=== PATIENT | female | born 1975 | race Caucasian/White ===

== ENCOUNTER → 2016-11-13 | Outpatient (CLI) | payer OTHER | LOC: RAD 08:33 | DX: M79.671 Pain in right foot (principal) ==

== ENCOUNTER → 2018-03-21 | Outpatient (CLI) | payer OTHER ==
[2018-03-21 12:50] LABS: EOS # 0.1 (0.04-0.40); EOS % 2.1 % (1.0-5.0); HEMATOCRIT 42.1 % (37.0-47.0); HEMOGLOBIN 13.9 g/dL (12.5-16.0); LYMPH# 2.4 (1.50-4.00); MEAN CELL VOLUME 87 fl (78-100); MEAN CORPUSCULAR HEMOGLOBIN 29 pg (27-31); MEAN CORPUSCULAR HGB CONC 33 g/dL (33-37); MEAN PLATELET VOLUME 11.5 fl (7.4-10.4); MONO # 0.7 (0.20-0.80); NEU # 3.3 (1.40-6.50); PLATELET COUNT 276 K/mm3 (130-400); RED BLOOD COUNT 4.84 M/mm3 (4.10-5.30); RED CELL DISTRIBUTION WIDTH 12.9 % (11.5-14.5); WHITE BLOOD COUNT 6.6 K/mm3 (4.8-10.8)
[2018-03-21 12:54] LABS: ALBUMIN 4.2 g/dL (3.5-5.0); BUN/CREATININE RATIO 15.5 (6.0-26.0); CALCIUM 8.8 mg/dL (8.4-10.2); POTASSIUM 4.3 mmol/L (3.6-5.0); TOTAL BILIRUBIN 0.5 mg/dL (0.2-1.3); TOTAL PROTEIN 8.1 g/dL (6.3-8.2)
[2018-03-21 13:58] LABS: ERYTHROCYTE SEDIMENTATION RATE 28 mm/hr (0-20)
== END ==
LOC: LAB 12:24
PROVIDERS: Internal Medicine
DX: Z00.00 Encounter for general adult medical examination without abnormal findings (principal)

== ENCOUNTER → 2018-07-29 | Outpatient (CLI) | payer BC | LOC: MAMMO 13:23 | DX: Z12.31 Encounter for screening mammogram for malignant neoplasm of breast (principal) ==

== ENCOUNTER 2018-08-27 16:00 | Outpatient (RCR) | payer BC | END 2018-10-28 | disposition home or self-care (01) | LOC: PT | DX: S29.012D Strain of muscle and tendon of back wall of thorax, subsequent encounter (principal); G43.909 Migraine, unspecified, not intractable, without status migrainosus ==

== ENCOUNTER → 2018-09-13 | Outpatient (CLI) | payer BC ==
[2018-09-13 08:42] LABS: EOS # 0.2 (0.04-0.40); EOS % 3.1 % (1.0-5.0); HEMATOCRIT 42.7 % (37.0-47.0); HEMOGLOBIN 14.4 g/dL (12.5-16.0); MEAN CELL VOLUME 87 fl (78-100); MEAN CORPUSCULAR HEMOGLOBIN 29 pg (27-31); MEAN CORPUSCULAR HGB CONC 34 g/dL (33-37); MEAN PLATELET VOLUME 11.1 fl (7.4-10.4); MONO # 0.6 (0.20-0.80); PLATELET COUNT 303 K/mm3 (130-400); RED BLOOD COUNT 4.89 M/mm3 (4.10-5.30); RED CELL DISTRIBUTION WIDTH 12.5 % (11.5-14.5); WHITE BLOOD COUNT 5.8 K/mm3 (4.8-10.8)
[2018-09-13 08:48] LABS: ALBUMIN 4.4 g/dL (3.5-5.0); CALCIUM 9.2 mg/dL (8.4-10.2); POTASSIUM 4.3 mmol/L (3.6-5.0); TOTAL BILIRUBIN 0.5 mg/dL (0.2-1.3); TOTAL PROTEIN 7.7 g/dL (6.3-8.2)
[2018-09-13 10:00] LABS: ERYTHROCYTE SEDIMENTATION RATE 18 mm/hr (0-20)
== END ==
LOC: LAB 08:05
PROVIDERS: Internal Medicine
DX: Z00.00 Encounter for general adult medical examination without abnormal findings (principal)

== ENCOUNTER → 2018-10-24 | Outpatient (CLI) | payer BC ==
[2018-10-24 08:29] LABS: ALBUMIN 4.2 g/dL (3.5-5.0); DIRECT BILIRUBIN 0.4 mg/dL (0.0-0.4); TOTAL BILIRUBIN 0.5 mg/dL (0.2-1.3); TOTAL PROTEIN 7.3 g/dL (6.3-8.2)
== END ==
LOC: LAB 08:01
PROVIDERS: Internal Medicine
DX: R94.5 Abnormal results of liver function studies (principal)

== ENCOUNTER → 2018-10-28 | Outpatient (CLI) | payer BC | LOC: RAD 07:05 | DX: R94.5 Abnormal results of liver function studies (principal) ==

== ENCOUNTER 2018-12-14 13:13 | Emergency (ER) | payer OTHER ==
[~2018-12-14] VITALS: Ht 157.5 cm; Wt 90.5 kg
[2018-12-14] MEDS ORDERED: ESTRACE1 M1 PO (14:11)
[2018-12-14] MEDS ORDERED: CALAN120 MG PO (14:12)
[2018-12-14] MEDS ORDERED: CYCLOBENZAPRINE10 M1 PO (16:31)
[2018-12-14] MEDS ORDERED: KETOROLAC10 MG PO (16:31)
[2018-12-14 16:45] VITALS: BP 140/96
== END 2018-12-14 16:45 | disposition home or self-care (01) ==
LOC: ED 13:13
DX: M62.838 Other muscle spasm (principal); R74.0 Nonspecific elevation of levels of transaminase and lactic acid dehydrogenase [LDH]; G43.909 Migraine, unspecified, not intractable, without status migrainosus; F17.210 Nicotine dependence, cigarettes, uncomplicated; Z88.1 Allergy status to other antibiotic agents; Z88.8 Allergy status to other drugs, medicaments and biological substances
CPT/HCPCS: J1885

== ENCOUNTER → 2020-04-20 | Outpatient (CLI) | payer BC ==
[~2020-04-20] MED LIST: CALAN120 MG PO; CYCLOBENZAPRINE10 M1 PO; ESTRACE1 M1 PO; KETOROLAC10 MG PO
== END ==
LOC: MAMMO 09:45
DX: Z12.31 Encounter for screening mammogram for malignant neoplasm of breast (principal); N63.10 Unspecified lump in the right breast, unspecified quadrant

== ENCOUNTER → 2020-04-26 | Outpatient (CLI) | payer BC | LOC: RAD 07:29 | DX: N63.11 Unspecified lump in the right breast, upper outer quadrant (principal) ==

== ENCOUNTER → 2020-04-29 | Outpatient (CLI) | payer BC ==
[2020-04-29 11:26] LABS: EOS # 0.3 (0.04-0.40); EOS % 3.7 % (1.0-5.0); HEMATOCRIT 42.9 % (37.0-47.0); HEMOGLOBIN 14.2 g/dL (12.5-16.0); LYMPH# 2.1 (1.50-4.00); MEAN CELL VOLUME 89 fl (78-100); MEAN CORPUSCULAR HEMOGLOBIN 29 pg (27-31); MEAN CORPUSCULAR HGB CONC 33 g/dL (33-37); MEAN PLATELET VOLUME 10.9 fl (7.4-10.4); MONO # 0.8 (0.20-0.80); NEU # 3.7 (1.40-6.50); PLATELET COUNT 304 K/mm3 (130-400); RED BLOOD COUNT 4.85 M/mm3 (4.10-5.30); RED CELL DISTRIBUTION WIDTH 12.4 % (11.5-14.5); WHITE BLOOD COUNT 6.8 K/mm3 (4.8-10.8)
[2020-04-29 11:29] LABS: POTASSIUM 4.3 mmol/L (3.5-5.1)
[2020-04-29 11:30] LABS: ALBUMIN 4.2 g/dL (3.5-5.0)
[2020-04-29 11:31] LABS: CALCIUM 9.7 mg/dL (8.3-10.5)
[2020-04-29 11:32] LABS: TOTAL PROTEIN 7.7 g/dL (6.4-8.3)
[2020-04-29 11:34] LABS: TOTAL BILIRUBIN 0.3 mg/dL (0.2-1.2)
[2020-04-29 12:39] LABS: ERYTHROCYTE SEDIMENTATION RATE 13 mm/hr (0-20)
== END ==
LOC: RAD 11:02
PROVIDERS: Internal Medicine
DX: N64.89 Other specified disorders of breast (principal); N63.10 Unspecified lump in the right breast, unspecified quadrant; Z98.82 Breast implant status
CPT/HCPCS: 15989; 15990; A4648

== ENCOUNTER 2020-05-14 12:56 | Emergency (ER) | payer BC ==
[~2020-05-14] VITALS: Ht 160 cm; Wt 100.9 kg
[2020-05-14 13:53] LABS: URINE WBC 0 /hpf (0-3)
[2020-05-14 13:58] LABS: EOS # 0.3 (0.04-0.40); EOS % 3.5 % (1.0-5.0); HEMATOCRIT 40.1 % (37.0-47.0); HEMOGLOBIN 13.2 g/dL (12.5-16.0); LYMPH# 2.2 (1.50-4.00); MEAN CELL VOLUME 89 fl (78-100); MEAN CORPUSCULAR HEMOGLOBIN 29 pg (27-31); MEAN CORPUSCULAR HGB CONC 33 g/dL (33-37); MEAN PLATELET VOLUME 10.9 fl (7.4-10.4); MONO # 0.7 (0.20-0.80); NEU # 4.3 (1.40-6.50); PLATELET COUNT 280 K/mm3 (130-400); RED BLOOD COUNT 4.51 M/mm3 (4.10-5.30); RED CELL DISTRIBUTION WIDTH 12.3 % (11.5-14.5); WHITE BLOOD COUNT 7.5 K/mm3 (4.8-10.8)
[2020-05-14 14:10] LABS: POTASSIUM 4.2 mmol/L (3.5-5.1); SODIUM 139 mmol/L (136-145)
[2020-05-14 14:12] LABS: GLUCOSE 85 mg/dL (65-105); TOTAL PROTEIN 7.4 g/dL (6.4-8.3)
[2020-05-14 14:13] LABS: CARBON DIOXIDE 22 mmol/L (22-29)
[2020-05-14 14:14] LABS: TOTAL BILIRUBIN 0.3 mg/dL (0.2-1.2)
[2020-05-14 14:17] LABS: AST-SGOT 20 U/L (5-34)
[2020-05-14 14:19] LABS: ALT/SGPT 21 U/L (0-55); LIPASE 26 U/L (8-78)
[2020-05-14 14:20] LABS: D-DIMER 0.25 mg/L FEU (0.15-0.50)
[2020-05-14 14:21] LABS: URINE APPEARANCE CLEAR; URINE BILIRUBIN NEGATIVE (NEGATIVE); URINE BLOOD NEGATIVE (NEGATIVE); URINE COLOR YELLOW; URINE GLUCOSE NEGATIVE (NEGATIVE); URINE KETONE NEGATIVE (NEGATIVE); URINE LEUKOCYTE ESTERASE NEGATIVE (NEGATIVE); URINE NITRATE NEGATIVE (NEGATIVE); URINE PROTEIN(semi-quant) NEGATIVE (NEGATIVE); URINE UROBILINOGEN NORMAL (NORMAL)
[2020-05-14 14:26] LABS: TROPONIN-I < 0.03 ng/mL (<0.030)
[2020-05-14 16:48] VITALS: BP 141/94
== END 2020-05-14 15:56 | disposition home or self-care (01) ==
LOC: ED 12:56
PROVIDERS: Internal Medicine; Nurse Practitioner Primary Care
DX: R07.89 Other chest pain (principal); Z90.710 Acquired absence of both cervix and uterus; Z88.1 Allergy status to other antibiotic agents

== ENCOUNTER → 2020-05-17 | Day surgery (SDC) | payer BC ==
[2020-05-14 16:48] VITALS: BP 141/94
== END ==
LOC: MSO 08:12
DX: K92.1 Melena (principal); Z79.52 Long term (current) use of systemic steroids; E78.5 Hyperlipidemia, unspecified; G43.909 Migraine, unspecified, not intractable, without status migrainosus; J30.9 Allergic rhinitis, unspecified; Z90.710 Acquired absence of both cervix and uterus; Z88.1 Allergy status to other antibiotic agents; Z88.8 Allergy status to other drugs, medicaments and biological substances
CPT/HCPCS: 00812; J2704; J7120

== ENCOUNTER 2021-06-20 10:00 | Outpatient (RCR) | payer OTHER | END 2021-09-18 | disposition home or self-care (01) | LOC: PT | DX: S80.01XA Contusion of right knee, initial encounter (principal); W01.0XXA Fall on same level from slipping, tripping and stumbling without subsequent striking against object, initial encounter ==

== ENCOUNTER → 2021-08-31 | Outpatient (CLI) | payer BC | LOC: MAMMO 09:15 | DX: Z12.31 Encounter for screening mammogram for malignant neoplasm of breast (principal) ==

== ENCOUNTER → 2021-09-08 | Outpatient (CLI) | payer BC ==
[2021-09-08 09:39] LABS: ALBUMIN 3.9 g/dL (3.5-5.0); POTASSIUM 4.4 mmol/L (3.5-5.1); SODIUM 138 mmol/L (136-145)
[2021-09-08 09:40] LABS: CALCIUM 9.2 mg/dL (8.3-10.5)
[2021-09-08 09:41] LABS: GLUCOSE 94 mg/dL (65-105); TOTAL PROTEIN 7.4 g/dL (6.4-8.3)
[2021-09-08 09:42] LABS: CARBON DIOXIDE 26 mmol/L (22-29)
[2021-09-08 09:43] LABS: TOTAL BILIRUBIN 0.4 mg/dL (0.2-1.2)
[2021-09-08 09:46] LABS: AST-SGOT 14 U/L (5-34)
[2021-09-08 09:48] LABS: ALT/SGPT 34 U/L (0-55); LIPASE 35 U/L (8-78)
[2021-09-08 09:52] LABS: D-DIMER 0.34 mg/L FEU (0.15-0.50)
[2021-09-08 10:02] LABS: TROPONIN-I < 0.03 ng/mL (<0.030)
[2021-09-08 11:02] LABS: BASO # 0.04 K/mm3 (0.02-0.10); EOS # 0.14 K/mm3 (0.04-0.40); EOS % 2.2 % (1.0-5.0); HEMATOCRIT 43.5 % (37.0-47.0); HEMOGLOBIN 14.1 g/dL (12.5-16.0); LYMPH# 1.68 K/mm3 (1.50-4.00); MEAN CELL VOLUME 89 fl (78-100); MEAN CORPUSCULAR HEMOGLOBIN 29 pg (27-31); MEAN CORPUSCULAR HGB CONC 32 g/dL (33-37); MEAN PLATELET VOLUME 11.1 fl (7.4-10.4); MONO # 0.46 K/mm3 (0.20-0.80); PLATELET COUNT 311 K/mm3 (130-400); RED BLOOD COUNT 4.87 M/mm3 (4.10-5.30); RED CELL DISTRIBUTION WIDTH 12.2 % (11.5-14.5); WHITE BLOOD COUNT 6.3 K/mm3 (4.8-10.8)
== END ==
LOC: LAB 09:14
PROVIDERS: Nurse Practitioner
DX: R00.2 Palpitations (principal); R07.89 Other chest pain

== ENCOUNTER → 2021-09-29 | Outpatient (CLI) | payer BC | LOC: LAB 09:19 | DX: Z00.00 Encounter for general adult medical examination without abnormal findings (principal) ==

== ENCOUNTER → 2022-04-17 | Outpatient (CLI) | payer BC | LOC: LAB 12:16 | DX: Z20.822 Contact with and (suspected) exposure to COVID-19 (principal) ==

== ENCOUNTER → 2022-11-29 | Outpatient (CLI) | payer BC | LOC: MAMMO 15:58 | DX: Z12.31 Encounter for screening mammogram for malignant neoplasm of breast (principal) ==

== ENCOUNTER → 2024-03-17 | Outpatient (CLI) | payer BC ==
[2024-05-07 11:37] LABS: ALBUMIN 4.2 g/dL (3.5-5.0); CALCIUM 9.6 mg/dL (8.3-10.5); TOTAL BILIRUBIN 0.3 mg/dL (0.2-1.2); TOTAL PROTEIN 7.2 g/dL (6.4-8.3)
[2024-05-07 11:43] LABS: BASO # 0.03 K/mm3 (0.02-0.10); EOS # 0.29 K/mm3 (0.04-0.40); EOS % 4.3 % (1.0-5.0); HEMATOCRIT 43.6 % (37.0-47.0); HEMOGLOBIN 14.3 g/dL (12.5-16.0); LYMPH# 2.37 K/mm3 (1.50-4.00); MEAN CELL VOLUME 88 fl (78-100); MEAN CORPUSCULAR HEMOGLOBIN 29 pg (27-31); MEAN CORPUSCULAR HGB CONC 33 g/dL (33-37); MEAN PLATELET VOLUME 11.3 fl (7.4-10.4); MONO # 0.55 K/mm3 (0.20-0.80); NEU # 3.54 K/mm3 (1.40-6.50); PLATELET COUNT 282 K/mm3 (130-400); RED BLOOD COUNT 4.98 M/mm3 (4.10-5.30); WHITE BLOOD COUNT 6.8 K/mm3 (4.8-10.8)
== END ==
LOC: LAB 15:27
PROVIDERS: Internal Medicine
DX: Z00.00 Encounter for general adult medical examination without abnormal findings (principal)

== ENCOUNTER → 2024-07-01 | Outpatient (CLI) | payer BC | LOC: RAD 13:36 | DX: M89.9 Disorder of bone, unspecified (principal); M76.62 Achilles tendinitis, left leg ==

== ENCOUNTER 2024-07-28 13:27 | Outpatient (RCR) | payer OTHER | END 2024-08-07 | disposition home or self-care (01) | LOC: PT | DX: M25.571 Pain in right ankle and joints of right foot (principal); M25.572 Pain in left ankle and joints of left foot ==